=== PATIENT | female | born 1985 | race American Indian/Alaskan Native ===

== ENCOUNTER 2016-08-08 18:14 | Emergency (ER) | payer OTHER ==
[2016-08-08 18:20] VITALS: TEMP 98.3; O2SAT 100
--- NOTE | 2016-08-08 19:42 | C.PDOC ---
History Of Present Illness Pt c/o vaginal bleeding. Time Seen by Provider: 08/08/16 19:13 Chief Complaint (Nursing): Female Genitourinary History Per: Patient Onset/Duration Of Symptoms: Days (1) Current Symptoms Are (Timing): Still Present Severity: Moderate Quality Of Discomfort: Cramping Alleviating Factors: None Additional History Per: Prior Records Abnormal Vaginal Bleeding: Yes Last Menstral Period: May 2016 Past Medical History Reviewed: Historical Data, Nursing Documentation, Vital Signs Vital Signs: Last Vital Signs Temp 98.3 F 08/08/16 18: Pulse 74 08/08/16 21:53 Resp 20 08/08/16 21:53 BP 112/72 08/08/16 21:53 Pulse Ox 100 08/08/16 19:42 - Medical History PMH: No Chronic Diseases Surgical History: No Surg Hx Family History: States: Unknown Family Hx - Social History Hx Tobacco Use: No Hx Alcohol Use: No Hx Substance Use: No - Immunization History Hx Tetanus Toxoid Vaccination: No Hx Influenza Vaccination: No Hx Pneumococcal Vaccination: No Review Of Systems Except As Marked, All Systems Reviewed And Found Negative. Constitutional: Negative for: Fever, Weakness Cardiovascular: Negative for: Chest Pain Respiratory: Negative for: Shortness of Breath Gastrointestinal: Positive for: Abdominal Pain (left lower) Genitourinary: Positive for: Vaginal Bleeding Musculoskeletal: Positive for: Back Pain (left lower). Negative for: Neck Pain Skin: Negative for: Rash Neurological: Negative for: Weakness, Numbness Physical Exam - Physical Exam Appears: Non-toxic, No Acute Distress Skin: Normal Color, Warm, Dry, No Rash Head: Atraumatic, Normacephalic Eye(s): bilateral: PERRL, EOMI Neck: Normal ROM, Supple Cardiovascular: Rhythm Regular Respiratory: Normal Breath Sounds, No Accessory Muscle Use Gastrointestinal/Abdominal: Soft, No Tenderness Back: No Vertebral Tenderness Extremity: Normal ROM Neurological/Psych: Oriented x3, Normal Motor, Normal Sensation ED Course And Treatment - Laboratory Results Result Diagrams: 08/08/16 20:43 08/08/16 20:43 Lab Interpretation: Abnormal Interpretation Of Abnormal: Anemia Urine POC: Positive O2 Sat by Pulse Oximetry: 100 Pulse Ox Interpretation: Normal - CT Scan/US Pelvic US Other Rad Studies (CT/US): Read By Radiologist, Radiology Report Reviewed CT/US Interpretation: Thickened endometrium measuring up to 1.9cm. No gestational sac. No FF. Progress - Interventions Interventions:: Observation, Intravenous fluid - Medications Administered Oral: Acetaminophen - Data Reviewed Data Reviewed: Lab, Diagnostic imaging, Old records - Patient Status Patient status: Mostly improved - Continuity of Care Discussed patient case with:: Patient, ED Nurse Discussed pt. case with gift consultant/specialty: Obstetrics/Gynecology - Patient Plan Patient Plan: Discharge Medical Decision Making Medical Decision Making: Ab vs. Ectopic vs. Early . Disposition Discussed With : Brenden Bañuelos (Laundry Washer) Comment: She states pt can be discharged home and f/up for repeat beta hcg in 2 days. Counseled Patient/Family Regarding: Studies Performed, Diagnosis, Need For Followup, Rx Given - Disposition Referrals: Yuri Enriquez MD [Staff Provider] - Disposition: HOME/ ROUTINE Disposition Time: 22:40 Condition: FAIR Additional Instructions: Follow up with your Yeast Distiller for return to the ER in 2 days for a repeat hormone level to rule out ectopic (a dangerous condition). Return to the ER immediately if you develop dizziness, heavy bleeding, severe pain, worsening of symptoms or if you have any other concerns. Prescriptions: Ferrous Sulfate 325 mg PO TID #30 tablet Forms: General Discharge Instructions - Clinical Impression Clinical Impression: Abnormal vaginal bleeding, test positive, Anemia
[2016-08-08] MEDS ORDERED: Sodium Chloride 0.9% 1,000 ML IV ONE (20:15)
[2016-08-08 20:18] LABS: RBC URINE < 1 /hpf (0-3); URINE BILIRUBIN NEGATIVE (NEGATIVE); URINE BLOOD 1+ (NEGATIVE); URINE COLOR Yellow (YELLOW); URINE GLUCOSE (UA) NORMAL (Normal); URINE KETONE NEGATIVE (NEGATIVE); URINE LEUKOCYTE ESTERASE NEG Leu/uL (Negative); URINE PROTEIN NEGATIVE (NEGATIVE); URINE UROBILINOGEN NORMAL mg/dL (0.2-1.0); WBC URINE 1 /hpf (0-5)
[2016-08-08 20:47] LABS: BASO % 0.2 % (0.0-2.0); HEMATOCRIT 28.3 % (34.0-47.0); LYMPH # 2.3 K/uL (1.0-4.3); LYMPH % 26.6 % (20.0-40.0); MEAN CELL VOLUME 67.3 fL (81.0-99.0); MEAN CORPUSCULAR HEMOGLOBIN 20.6 pg (27.0-31.0); MEAN CORPUSCULAR HGB CONC 30.7 g/dL (33.0-37.0); MEAN PLATELET VOLUME 8.4 fL (7.2-11.7); MONO # 0.5 K/uL (0.0-0.8); MONO % 5.8 % (0.0-10.0); RED CELL DISTRIBUTION WIDTH 17.8 % (11.5-14.5); WHITE BLOOD COUNT 8.7 K/uL (4.8-10.8)
[2016-08-08 21:03] LABS: CHLORIDE 105 mmol/L (98-107); POTASSIUM 3.6 mmol/L (3.6-5.2); SODIUM 142 mmol/L (132-148)
[2016-08-08 21:05] LABS: GFR AFRICAN-AMERICAN > 60
[2016-08-08 21:06] LABS: ALB/GLOB RATIO 1.2 (1.0-2.1); ALKALINE PHOSPHATASE 52 U/L (38-126); ALT/SGPT 18 U/L (9-52); AST/SGOT 23 U/L (14-36); BILIRUBIN,TOTAL 0.2 mg/dL (0.2-1.3); BLOOD UREA NITROGEN 9 mg/dL (7-17); CARBON DIOXIDE 24 mmol/L (22-30); GLUCOSE,RANDOM 99 mg/dL (65-105); TOTAL PROTEIN 7.3 g/dL (6.3-8.3)
[2016-08-08 21:07] LABS: CALCIUM 8.7 mg/dl (8.6-10.4)
[2016-08-08 21:54] VITALS: BP 112/72; PULSE 74; RESP 20
--- NOTE | 2016-08-09 09:00 | US ---
HISTORY: Pain/bleeding r/o ectopic COMPARISON: None available. TECHNIQUE: Transabdominal and transvaginal pelvic ultrasound was performed. FINDINGS: UTERUS: Measures 9.1 x 5.5 x 7.5 cm. Anteverted, normal in size and appearance. No fibroid or other mass lesion seen. ENDOMETRIUM: The central endometrial echo complex is thickened and measures 1.8 cm. There is also increased central vascularity. . CERVIX: No cervical abnormality identified. RIGHT OVARY: Measures 3.1 x 1.6 x 2.7 cm. No solid mass. Normal flow. LEFT OVARY: Measures 2.9 x 1.3 x 2.3 cm. No solid mass. Normal flow. FREE FLUID: No significant free fluid noted. OTHER FINDINGS: None. IMPRESSION: 1. No evidence of intrauterine gestation. Thick hypervascular central endometrial echo complex. Given elevated Beta -HCG levels, findings could represent retained products of conception versus ectopic . Close interval follow-up is advised. 2. No adnexal mass or free fluid in the pelvis. A preliminary report was provided by [employer].
== END 2016-08-08 22:49 | disposition home or self-care (01) ==
LOC: C.ER 18:14
DX: N93.8 Other specified abnormal uterine and vaginal bleeding (principal); Z32.01 Encounter for pregnancy test, result positive; D64.9 Anemia, unspecified
CPT/HCPCS: 76830; 76856; 80053; 81001; 84702; 84703; 85025; 86850; 86900; 99284; J7040

== ENCOUNTER 2016-08-14 10:02 | Emergency (ER) | payer OTHER ==
[2016-08-14 10:14] VITALS: RESP 18; O2SAT 100
--- NOTE | 2016-08-14 11:22 | C.PDOC ---
History Of Present Illness 31 year old female patient returned to the ED for repeated blood works as instructed 6 days ago. Patient was supposed to follow up 2 days after prior visit for a repeat blood test but never showed up and did not follow up with OB. Patient reports mild vaginal bleeding but denies fever, chills, nausea, vomiting, or any other complaints at this time. Patient LMP begin May 2016 , Pt is . Time Seen by Provider: 08/14/16 10:15 Chief Complaint (Nursing): Medical Clearance History Per: Patient Onset/Duration Of Symptoms: Days Current Symptoms Are (Timing): Still Present Severity: Mild Reports Recently: Seen In ED Past Medical History Reviewed: Historical Data, Nursing Documentation, Vital Signs Vital Signs: Last Vital Signs Temp 98.1 F 08/14/16 13:54 Pulse 72 08/14/16 13:54 Resp 18 08/14/16 13:54 BP 107/72 08/14/16 13:54 Pulse Ox 100 08/14/16 13:54 Family History: States: Unknown Family Hx - Social History Hx Tobacco Use: No Hx Alcohol Use: No Hx Substance Use: No - Immunization History Hx Tetanus Toxoid Vaccination: No Hx Influenza Vaccination: No Hx Pneumococcal Vaccination: No Review Of Systems Except As Marked, All Systems Reviewed And Found Negative. Constitutional: Negative for: Fever, Chills Gastrointestinal: Negative for: Nausea, Vomiting Genitourinary: Positive for: Vaginal Bleeding (Mild) Physical Exam - Physical Exam Appears: Non-toxic, No Acute Distress Skin: Warm, Dry Head: Atraumatic, Normacephalic Eye(s): bilateral: Normal Inspection Cardiovascular: Rhythm Regular, No Murmur Respiratory: Normal Breath Sounds, No Rales, No Rhonchi, No Wheezing Gastrointestinal/Abdominal: Soft, No Tenderness Pelvic: Vaginal Bleeding, Other (Pelvic is deferred) Neurological/Psych: Oriented x3, Normal Speech, Normal Cognition ED Course And Treatment O2 Sat by Pulse Oximetry: 100 (Room air) Pulse Ox Interpretation: Normal Medical Decision Making Medical Decision Making: Plans: -OB transvaginal US -Reassess and disposition Spoke to patient about blood work results and US. Patient was told to follow up with OBGYN within 2 days. Disposition - [facility] - Disposition: HOME/ ROUTINE Disposition Time: 13:10 Condition: GOOD Additional Instructions: Thank you for letting us take care of you today. Your provider was Dr. Tobin. You were treated for repeat blood work. The emergency medical care you received today was directed at your acute symptoms. If you were prescribed any medication, please fill it and take as directed. It may take several days for your symptoms to resolve. Return to the Emergency Department if your symptoms worsen, do not improve, or if you have any other problems. Please contact your doctor or call one of the physicians/clinics you have been referred to that are listed on the Patient Visit Information form that is included in your discharge packet. Bring any paperwork you were given at discharge with you along with any medications you are taking to your follow up visit. Our treatment cannot replace ongoing medical care by a primary care provider (PCP) outside of the emergency department. Thank you for allowing the [facility] team to be part of your care today. Follow up with your CONSULTING TECHNICAL DIRECTOR doctor in the next 2-3 days. Return if you have concerns. Instructions: Spontaneous Miscarriage (ED) - Clinical Impression Clinical Impression: test positive - Scribe Statement The provider has reviewed the documentation as recorded by the Scribe Jw silva All medical record entries made by the Scribe were at my direction and personally dictated by me. I have reviewed the chart and agree that the record accurately reflects my personal performance of the history, physical exam, medical decision making, and the department course for this patient. I have also personally directed, reviewed, and agree with the discharge instructions and disposition.
--- NOTE | 2016-08-14 13:22 | US ---
Pelvic ultrasound Comparison: 08/08/2016. Technique: Transvaginal pelvic ultrasonography performed. Findings: The uterus is anteverted and measures 9.9 x 4.7 x 7.4 centimeters. No intrauterine gestational sac identified. The endometrium is heterogeneous in echotexture and measures approximately 1.1 centimeters. Tiny cystic structures noted in the endometrial canal. Upon color Doppler interrogation, the endometrium demonstrates heterogeneous color flow within it. No significant free fluid in the cul-de-sac. Right ovary measures 2.3 x 1.6 x 2.1 centimeters. The left ovary measures 2.8 x 1.9 x 2.1 centimeters. Normal appearing follicles seen within both ovaries. Doppler flow seen within both ovaries. Impression: Mildly expanded endometrial canal with heterogeneous material within it which demonstrates Doppler flow. These findings may be consistent with retained products of conception, versus in progress. Normal appearing ovaries. According to technologist note, beta HCG today: 71.97; beta HCG on 08/08 [id number]. Followup ultrasonography recommended. Follow-up with beta HCG should be obtained.
[2016-08-14 13:57] VITALS: BP 107/72; PULSE 72; TEMP 98.1
== END 2016-08-14 13:54 | disposition home or self-care (01) ==
LOC: C.ER 10:02
DX: Z32.01 Encounter for pregnancy test, result positive (principal)